=== PATIENT | female | born 2000 | race Hispanic/Latino ===

== ENCOUNTER 2024-04-20 17:41 | Emergency (ER) | payer OTHER ==
[~2024-04-20] VITALS: Ht 154.9 cm; Wt 86.4 kg
[2024-04-20 18:00] VITALS: PULSE 91; RESP 20; TEMP 98.6
[2024-04-20] MEDS: FAMOTIDINE 20 MG/2 ML VIAL IV STA (19:05)
[2024-04-20] MEDS: MAGNESIUM/ALUMINUM/SIMETHICONE 30 ML UDC PO ONE (19:06)
[2024-04-20] MEDS ORDERED: PEPCID20 MG PO (19:22)
[2024-04-20 19:45] VITALS: BP 123/67; PULSE 88; RESP 18; TEMP 98.6; O2SAT 99
== END 2024-04-20 19:45 | disposition home or self-care (01) ==
LOC: FSED 17:52
DX: R07.89 Other chest pain (principal)
CPT/HCPCS: 71046; 80053; 81003; 84484; 85025; 85379; 93005; 99284